=== PATIENT | female | born 1935 | race Caucasian/White ===

== ENCOUNTER 2018-01-30 10:22 | Observation (INO) | payer OTHER ==
[2018-01-30] MEDS ORDERED: IBUPROFEN 400 MG TAB ONE (11:08)
--- NOTE | 2018-01-30 11:49 | RAD REPORT ---
EXAM DESCRIPTION: RAD - Chest Single View - 01/30/2018 11:41 am CLINICAL HISTORY: Chest pain. COMPARISON: 07/24/2017 FINDINGS: Portable technique limits examination quality. The lungs are emphysematous but grossly clear. The heart is normal in size. No displaced fractures.Mo derate thoracic spine levoscoliosis. IMPRESSION: Diffuse COPD.
--- NOTE | 2018-01-30 11:50 | RAD REPORT ---
EXAM DESCRIPTION: RAD - Femur Left - 01/30/2018 11:41 am CLINICAL HISTORY: Left thigh pain COMPARISON: None. FINDINGS: Prominent osteopenia is seen. Vascular calcification is noted. No acute fracture or disloc ation seen.
[2018-01-30] MEDS ORDERED: METOPROLOL TARTRATE 5 MG/5 ML INJ IV ONE (12:10)
[2018-01-30] MEDS ORDERED: METOPROLOL TAR 25 MG TAB ONE (12:10)
[2018-01-30 12:19] LABS: Absolute Lymphocytes (CBC) 0.4 K/uL (0.7-4.9); Absolute Monocytes 0.3 K/uL (0.1-1.3); Absolute Neutrophil 6.5 K/uL (1.8-8.0); Basophils % 2.6 % (0-1.3); Hematocrit 40.1 % (36.0-45.0); Lymphocytes % 5.1 % (15.3-44.8); MCH 28.2 pg (27.0-35.0); MCV 89.4 fL (80-100); MPV 8.4 fL (7.6-11.3); Monocytes % 3.8 % (3.3-12.3); RBC Red Blood Cell Count 4.48 M/uL (3.86-4.86)
--- NOTE | 2018-01-30 12:26 | RAD REPORT ---
EXAM DESCRIPTION: VAS - Extremity Venous Uni Ltd - 01/30/2018 12:11 pm CLINICAL HISTORY: Leg swelling and edema. COMPARISON: None. FINDINGS: Left lower extremity venous system was interrogated with Doppler technique. Normal flow, c ompressibility and augmentation was noted. There is no DVT present. IMPRESSION: No evidence of left lower extremity deep venous thrombosis.
[2018-01-30 12:30] LABS: Protime INR 2.68
[2018-01-30 12:45] LABS: CKMB Creatine Kinase MB 3.4 ng/ml (0.3-4.0)
[2018-01-30 12:51] LABS: Bilirubin Direct 0.3 mg/dL (0-0.2); Bilirubin Total 1.5 mg/dL (0.3-1.2); Magnesium 1.9 mg/dL (1.8-2.5); Protein, Total 6.8 g/dL (6.0-8.3)
[2018-01-30 12:52] LABS: T3 Free 2.58 pg/ml (2.84-4.24)
[2018-01-30] MEDS ORDERED: NA CHLORIDE 0.9% 1,000 ML ONE (12:59)
[2018-01-30] MEDS ORDERED: NA CHLORIDE 0.9% 250 ML ONE (12:59)
[2018-01-30 13:01] LABS: Blood Morphology Comment NOT SEEN (NOT SEEN); Platelet Estimate ADEQ
--- NOTE | 2018-01-30 13:06 | EDPHYS ---
Physician Documentation [facility] Name: Syeda Light Age: 82 yrs Sex: Female : 1935 Arrival Date: 01/30/2018 Time: 10:25 Bed 19 Private MD: Out, [facility] ED Physician Shukri Nielsen HPI: 01/30 10:49 This 82 yrs old Female presents to ER via Ambulatory with complaints of Leg cp Pain. 10:49 The patient presents with pain, that is acute, tenderness. The complaints affect the cp medial aspect of left thigh and left quadriceps. Context: the patient can fully bear weight, the patient is able to ambulate, without difficulty. Onset: The symptoms/episode began/occurred today, intermittent. 10:49 Associated signs and symptoms: Pertinent negatives calf tenderness, fever, numbness, cp weakness. Treatment prior to arrival includes: no previous treatment. Historical: - Allergies: 11:26 No Known Allergies; em - Home Meds: 10:32 ferrous sulfate 325 mg (65 mg iron) Oral tab daily [Active]; Klor-Con M20 20 mEq Oral hb TbTQ 1 tab once daily [Active]; Lasix 40 mg Oral tab 1 tab once daily [Active]; Xarelto 15 mg Oral tab daily [Active]; 11:23 levothyroxine 75 mcg oral tab [Active]; isosorbide mononitrate 30 mg Oral Tb24 1 tab em once daily [Active]; - PMHx: 10:32 BREAST CA; CHF; Hypertension; Hypothyroidism; Atrial Fib; hb - PSHx: 10:32 left mastectomy; hb - Immunization history:: Adult Immunizations up to date. - Social history:: Smoking status: Patient/guardian denies using tobacco. - Ebola Screening: : No symptoms or risks identified at this time. ROS: 10:55 Constitutional: Negative for body aches, chills, fever, poor PO intake. cp 10:55 Eyes: Negative for injury, pain, redness, and discharge. cp 10:55 ENT: Negative for drainage from ear(s), ear pain, sore throat, difficulty swallowing, difficulty handling secretions. 10:55 Cardiovascular: Negative for chest pain, edema, palpitations. 10:55 Respiratory: Negative for cough, shortness of breath, wheezing. 10:55 Abdomen/GI: Negative for abdominal pain, nausea, vomiting, and diarrhea, black/tarry stool, rectal bleeding. 10:55 Back: Negative for decreased range of motion, pain at rest, pain with movement, radiated pain. 10:55 MS/extremity: Positive for pain, tenderness, of the medial aspect of left thigh, Negative for injury or acute deformity, paresthesias. 10:55 Skin: Negative for cellulitis, rash. 10:55 All other systems are negative. Exam: 11:00 Constitutional: The patient appears in no acute distress, alert, awake, cp non-diaphoretic, non-toxic, well developed, well nourished. 11:00 Head/Face: Normocephalic, atraumatic. cp 11:00 Eyes: Periorbital structures: appear normal, Pupils: equal, round, and reactive to light and accomodation, Extraocular movements: intact throughout, Conjunctiva: normal, no exudate, no injection, Sclera: no appreciated abnormality, Lids and lashes: appear normal, bilaterally. 11:00 ENT: External ear(s): are unremarkable, Nose: is normal, Mouth: is normal, Posterior pharynx: is normal, airway is patent, no erythema, no exudate. 11:00 Neck: External neck: is normal, ROM/movement: is normal, is supple, without pain, no range of motions limitations, no nuchal rigidity. 11:00 Chest/axilla: Inspection: normal, Palpation: is normal, no crepitus, no tenderness. 11:00 Cardiovascular: Rate: tachycardic, Rhythm: irregularly irregular, Pulses: Pulses are 2+ in right radial artery and left radial artery. Edema: is not appreciated, JVD: is not appreciated. 11:00 Respiratory: the patient does not display signs of respiratory distress, Respirations: normal, no use of accessory muscles, no retractions, no splinting, no tachypnea, labored breathing, is not present, Breath sounds: decreased breath sounds, that are mild, throughout. 11:00 Abdomen/GI: Inspection: abdomen appears normal, Bowel sounds: active, all quadrants, Palpation: abdomen is soft and non-tender, in all quadrants, rebound tenderness, is not appreciated, voluntary guarding, is not appreciated, involuntary guarding, is not appreciated. 11:00 Back: pain, is absent, ROM is normal. 11:00 Musculoskeletal/extremity: Extremities: grossly normal except: noted in the medial aspect of left thigh: pain, tenderness, There is no evidence of deformity, erythema, swelling, injury or cellulitis. 11:00 Skin: cellulitis, is not appreciated, no rash present. 11:00 Neuro: Orientation: to person, place \T\ time. Mentation: lucid, able to follow commands, Cerebellar function: is grossly normal, Motor: moves all fours, strength is normal, Sensation: is normal. 11:30 ECG was reviewed by the Attending Physician. cp Vital Signs: 10:31 BP 130 / 69; Pulse 116; Resp 16; Temp 98.2; Pulse Ox 100% on R/A; Weight 53.98 kg; hb Height 5 ft. 6 in. (167.64 cm); Pain 2/10; 11:15 BP 115 / 111; Pulse 116; Resp 18; Pulse Ox 98% on R/A; em 12:23 BP 127 / 85; Pulse 108; Resp 18 S; Pulse Ox 98% on R/A; iw 13:00 BP 118 / 79; Pulse 66; Resp 18; Pulse Ox 96% on R/A; em 13:53 BP 105 / 79; Pulse 81; Resp 15; Pulse Ox 98% on R/A; ag 15:12 BP 108 / 65; Pulse 76; Resp 18; Pulse Ox 95% on R/A; Pain 0/10; em 10:31 Body Mass Index 19.21 (53.98 kg, 167.64 cm) hb MDM: 10:35 Patient medically screened. [facility] 11:00 Differential diagnosis: contusion, DVT, cellulitis, electrolyte abnormality, cardiac cp arrythmia. 12:55 Data reviewed: vital signs, nurses notes, lab test result(s), EKG, radiologic studies, cp plain films, ultrasound. 12:55 Test interpretation: by ED physician or midlevel provider: ECG. Response to treatment: cp the patient's symptoms have markedly improved after treatment. 13:01 Physician consultation: Devin Goldstein DO was contacted at 13:01, regarding admission, cp to the telemetry unit. patient's condition, and will see patient in ED, shortly. 01/30 11:25 Order name: Basic Metabolic Panel cp 01/30 11:25 Order name: BNP 01/30 11:25 Order name: CBC with Diff 01/30 12:40 Interpretation: Normal except: MCV 89.4; MCHC 31.5; SANDY% 87.5; LYM% 5.1; BASO% 2.6; cp LYMA 0.4. 01/30 11:25 Order name: Ckmb 01/30 11:25 Order name: CPK 01/30 11:25 Order name: LFT's 01/30 11:25 Order name: Magnesium cp 01/30 11:25 Order name: PT-INR; Complete Time: 12:39 cp 01/30 11:25 Order name: Ptt, Activated; Complete Time: 12:39 cp 01/30 11:25 Order name: Troponin (emerg Dept Use Only); Complete Time: 12:39 cp 01/30 11:25 Order name: TSH 01/30 11:25 Order name: T3 Free 01/30 13:01 Order name: Manual Differential [facility] 01/30 13:36 Order name: CKMB Creatine Kinase MB [facility] 01/30 10:51 Order name: US Extremity Venous Unilateral Ltd; Complete Time: 12:39 cp 01/30 10:51 Order name: XRAY Femur LEFT; Complete Time: 12:15 cp 01/30 13:36 Order name: CKMB Creatine Kinase MB [facility] 01/30 13:36 Order name: CKMB Creatine Kinase MB [facility]AL 01/30 13:36 Order name: Comprehensive Metabolic Panel [facility] 01/30 13:36 Order name: Comprehensive Metabolic Panel [facility] 01/30 13:36 Order name: Comprehensive Metabolic Panel [facility] 01/30 13:36 Order name: Comprehensive Metabolic Panel [facility] 01/30 13:36 Order name: Creatine Phosphokinase [facility]AL 01/30 13:36 Order name: Creatine Phosphokinase EDAL 01/30 13:36 Order name: Creatine Phosphokinase EDAL 01/30 13:36 Order name: Lipid Profile [facility] 01/30 13:36 Order name: Lipid Profile [facility] 01/30 13:36 Order name: Hemoglobin A1C EDAL 01/30 13:36 Order name: Hepatitis Panel,Acute EDAL 01/30 13:36 Order name: Troponin I EDAL 01/30 11:17 Order name: EKG; Complete Time: 11:17 cp 01/30 11:17 Order name: EKG - Nurse/Tech; Complete Time: 11:46 cp 01/30 11:25 Order name: XRAY Chest (1 view); Complete Time: 12:15 01/30 12:15 Interpretation: Report review. 01/30 11:25 Order name: Cardiac monitoring; Complete Time: 11:45 01/30 11:25 Order name: IV Saline Lock; Complete Time: 12:12 01/30 11:25 Order name: Labs collected and sent; Complete Time: 12:11 01/30 11:25 Order name: O2 Per Protocol; Complete Time: 11:45 01/30 11:25 Order name: O2 Sat Monitoring; Complete Time: 11:45 01/30 13:36 Order name: CONS Physician Consult [facility] 01/30 13:36 Order name: Respiratory Therapy Consult [facility] 01/30 13:36 Order name: Heart Healthy EDAL EC:30 Rate is 97 beats/min. Rhythm is irregularly irregular. QRS interval is normal. QT cp interval is normal. No ST changes noted. Interpreted by me. Reviewed by me. Administered Medications: 11:10 Drug: Ibuprofen 800 mg Route: PO; em 12:00 Follow up: Response: No adverse reaction em 12:11 Drug: Metoprolol 25 mg Route: PO; em 14:13 Follow up: Response: Cardiac rhythm changed em 12:22 Drug: Lopressor 5 mg Route: IVP; Site: right wrist; iw 14:13 Follow up: Response: No adverse reaction; Cardiac rhythm changed em 13:01 Drug: NS 0.9% 250 ml Route: IV; Rate: bolus; Site: right forearm; em 14:13 Follow up: IV Status: Completed infusion; IV Intake: 250ml em 13:50 Drug: NS 0.9% 1000 ml Route: IV; Rate: 75 ml/hr; Site: right forearm; em 15:27 Follow up: IV Status: Infusion continued upon admission; IV Intake: 150ml em Disposition: 01/30/18 13:05 Hospitalization ordered by Devin Goldstein for Observation. Preliminary diagnosis is Chronic atrial fibrillation. - Bed requested for Telemetry/MedSurg (observation). - Status is Observation. em - Condition is Stable. - Problem is new. - Symptoms have improved. UTI on Admission? No Addendum: 02/01/2018 09:00 Co-signature as Attending Physician, Shukri Nielsen MD I agree with the assessment and c justin plan of care. Signatures: Dispatcher [employer] EDMS Micaela Leonard Shukri Linton MD MD cha Munoz, Edgar, HEALTH AND SAFETY INSTRUCTOR HEALTH AND SAFETY INSTRUCTOR em Princess Potter, RN RN Shukri Avery PA PA cp Baxter, Heather, RN RN Corrections: (The following items were deleted from the chart) 01/30 11:23 10:32 Allergies: No Known Allergies; hb em 11:23 10:32 Home Meds: amiodarone 200 mg Oral tab 1 tab once daily; hb em 11:23 10:32 Home Meds: levothyroxine 50 mcg tab 1 tab once daily; hb em 12:40 12:39 Normal except: MCV 89.4; MCHC 31.5; SANDY% 87.5; LYM% 5.1; BASO% 2.6. cp 14:37 13:05 Hospitalization Ordered by Devin Goldstein DO for Observation. Preliminary bd diagnosis is Chronic atrial fibrillation. Bed requested for Telemetry/MedSurg (observation). Status is Observation. Condition is Stable. Problem is new. Symptoms have improved. UTI on Admission? No. cp 15:28 11:25 Urine Dipstick-Ancillary ordered. em 15:28 14:37 01/30/2018 13:05 Hospitalization Ordered by Devin Goldstein DO for Observation. em Preliminary diagnosis is Chronic atrial fibrillation. Bed requested for Telemetry/MedSurg (observation). Status is Observation. Condition is Stable. Problem is new. Symptoms have improved. UTI on Admission? No. bd
--- NOTE | 2018-01-30 13:06 | ER ---
Nurse's Notes [facility] Name: Syeda Light Age: 82 yrs Sex: Female : 1935 Arrival Date: 01/30/2018 Time: 10:25 Bed 19 Private MD: Out, [facility] Diagnosis: Chronic atrial fibrillation Presentation: 01/30 10:28 Presenting complaint: Patient states: Sharp left thigh pain since this morning. Denies hb injury. Transition of care: patient was not received from another setting of care. Onset of symptoms was January 30, 2018. Risk Assessment: Do you want to hurt yourself or someone else? Patient reports no desire to harm self or others. Care prior to arrival: None. 10:28 Method Of Arrival: Ambulatory hb 10:28 Acuity: MARY 3 hb 15:11 Initial Sepsis Screen: Does the patient meet any 2 criteria? No. Patient's initial em sepsis screen is negative. Does the patient have a suspected source of infection? No. Patient's initial sepsis screen is negative. Historical: - Allergies: 11:26 No Known Allergies; em - Home Meds: 10:32 ferrous sulfate 325 mg (65 mg iron) Oral tab daily [Active]; Klor-Con M20 20 mEq Oral hb TbTQ 1 tab once daily [Active]; Lasix 40 mg Oral tab 1 tab once daily [Active]; Xarelto 15 mg Oral tab daily [Active]; 11:23 levothyroxine 75 mcg oral tab [Active]; isosorbide mononitrate 30 mg Oral Tb24 1 tab em once daily [Active]; - PMHx: 10:32 BREAST CA; CHF; Hypertension; Hypothyroidism; Atrial Fib; hb - PSHx: 10:32 left mastectomy; hb - Immunization history:: Adult Immunizations up to date. - Social history:: Smoking status: Patient/guardian denies using tobacco. - Ebola Screening: : No symptoms or risks identified at this time. Screenin:00 Abuse screen: Denies threats or abuse. Nutritional screening: No deficits noted. em Tuberculosis screening: No symptoms or risk factors identified. Fall Risk None identified. Assessment: 11:08 General: Appears in no apparent distress. comfortable, Behavior is calm, cooperative. em General: Reports left femur pain that started this morning, feels "sharp", denies trauma. Pain: Denies pain. Pain: Pain at worst was 10 out of 10 on a pain scale. Quality of pain is described as sharp. Neuro: Level of Consciousness is awake, alert, obeys commands, Oriented to person, place, time, situation. Cardiovascular: Denies chest pain, palpitations, shortness of breath, Capillary refill < 3 seconds Patient's skin is warm and dry. Rhythm is atrial fibrillation Chest pain is denied. Respiratory: Airway is patent Respiratory effort is even, unlabored, Respiratory pattern is regular, symmetrical. GI: Abdomen is flat. : No signs and/or symptoms were reported regarding the genitourinary system. EENT: No signs and/or symptoms were reported regarding the EENT system. Derm: Skin is intact, is healthy with good turgor, Skin is pink, warm \\T\\ dry. Musculoskeletal: Range of motion: intact in all extremities, Swelling absent. 12:00 Reassessment: Patient appears in no apparent distress at this time. I agree with above iw assessment by Nguyễn Christine LVN. 12:00 Reassessment: Patient appears in no apparent distress at this time. Patient and/or em family updated on plan of care and expected duration. Pain level reassessed. Patient is alert, oriented x 3, equal unlabored respirations, skin warm/dry/pink. Patient states feeling better. 13:07 Reassessment: Patient appears in no apparent distress at this time. Patient and/or em family updated on plan of care and expected duration. Pain level reassessed. Patient is alert, oriented x 3, equal unlabored respirations, skin warm/dry/pink. Patient denies pain at this time. 14:05 Reassessment: Patient appears in no apparent distress at this time. Patient and/or em family updated on plan of care and expected duration. Pain level reassessed. awaiting room assignment, family at bedside. 14:50 Reassessment: Patient appears in no apparent distress at this time. Patient and/or em family updated on plan of care and expected duration. Pain level reassessed. pt eating lunch, tolerated well. Vital Signs: 10:31 BP 130 / 69; Pulse 116; Resp 16; Temp 98.2; Pulse Ox 100% on R/A; Weight 53.98 kg; hb Height 5 ft. 6 in. (167.64 cm); Pain 2/10; 11:15 BP 115 / 111; Pulse 116; Resp 18; Pulse Ox 98% on R/A; em 12:23 BP 127 / 85; Pulse 108; Resp 18 S; Pulse Ox 98% on R/A; iw 13:00 BP 118 / 79; Pulse 66; Resp 18; Pulse Ox 96% on R/A; em 13:53 BP 105 / 79; Pulse 81; Resp 15; Pulse Ox 98% on R/A; ag 15:12 BP 108 / 65; Pulse 76; Resp 18; Pulse Ox 95% on R/A; Pain 0/10; em 10:31 Body Mass Index 19.21 (53.98 kg, 167.64 cm) hb Vitals: 12:22 Cardiac Rhythm Assessment Atrial fibrillation W/rapid ventricular response. iw 15:12 Cardiac Rhythm Assessment Atrial fibrillation. em ED Course: 10:25 Patient arrived in ED. mr 10:26 Out, [facility] is Private Physician. mr 10:31 Triage completed. hb 10:31 Arm band placed on left wrist. hb 10:34 Shukri Crum PA is PHCP. cp 10:34 Shukri Nielsen MD is Attending Physician. cp 10:49 Nguyễn Christine LVN is Primary Nurse. em 11:41 XRAY Femur LEFT In Process Unspecified. EDMS 11:41 XRAY Chest (1 view) In Process Unspecified. EDMS 11:41 Ultrasound completed. Patient tolerated well. sg3 12:00 Patient has correct armband on for positive identification. Placed in gown. Bed in low em position. Call light in reach. Adult w/ patient. 12:10 Initial lab(s) drawn, by me, sent to lab. Inserted saline lock: 20 gauge in right em forearm, using aseptic technique. Blood collected. 12:11 US Extremity Venous Unilateral Ltd In Process Unspecified. EDMS 13:04 Devin Goldstein DO is Hospitalizing Provider. cp 15:10 No provider procedures requiring assistance completed. Patient admitted, IV remains in em place. Administered Medications: 11:10 Drug: Ibuprofen 800 mg Route: PO; em 12:00 Follow up: Response: No adverse reaction em 12:11 Drug: Metoprolol 25 mg Route: PO; em 14:13 Follow up: Response: Cardiac rhythm changed em 12:22 Drug: Lopressor 5 mg Route: IVP; Site: right wrist; iw 14:13 Follow up: Response: No adverse reaction; Cardiac rhythm changed em 13:01 Drug: NS 0.9% 250 ml Route: IV; Rate: bolus; Site: right forearm; em 14:13 Follow up: IV Status: Completed infusion; IV Intake: 250ml em 13:50 Drug: NS 0.9% 1000 ml Route: IV; Rate: 75 ml/hr; Site: right forearm; em 15:27 Follow up: IV Status: Infusion continued upon admission; IV Intake: 150ml em Intake: 14:13 IV: 250ml; Total: 250ml. em 15:27 IV: 150ml; Total: 400ml. em Outcome: 13:05 Decision to Hospitalize by Provider. cp 15:11 Admitted to Tele accompanied by tech, via wheelchair, room 218, with chart, Report em called to GUILLERMO Segura 15:11 Condition: good 15:11 Instructed on the need for admit, Demonstrated understanding of instructions. 15:28 Patient left the ED. em Signatures: Dispatcher [employer] Wendy Norwood mr Emmett, Nguyễn, PYROTECHNIC ASSEMBLER PYROTECHNIC ASSEMBLER em Princess Potter, GUILLERMO LI iw King, Shukri Wheatley PA PA cp Baxter, Heather, RN RN Ese Stern sg3 Corrections: (The following items were deleted from the chart) 10:33 10:31 BP 130 / 69; Pulse 105bpm; Resp 16bpm; Pulse Ox 100% RA; Temp 98.2F; 53.98 kg; hb Height 5 ft. 6 in.; BMI: 19.2; Pain 2/10; hb 11:23 10:32 Allergies: No Known Allergies; hb em 11:23 10:32 Home Meds: amiodarone 200 mg Oral tab 1 tab once daily; hb em 11:23 10:32 Home Meds: levothyroxine 50 mcg tab 1 tab once daily; hb em
[2018-01-30 13:10] LABS: Thyroid Stimulating Hormone 1.31 uIU/mL (0.34-5.60)
[2018-01-30] MEDS ORDERED: IPRATROPIUM BROM 0.5MG/2.5ML NEB PRN (13:29)
[2018-01-30] MEDS ORDERED: ALBUTEROL 2.5 MG/3 ML NEB SOL NEB PRN (13:29)
[2018-01-30] MEDS ORDERED: ONDANSETRON 4 MG/2 ML VIAL IV PRN (13:29)
[2018-01-30] MEDS ORDERED: ACETAMINOPHEN 500 MG TAB PO PRN (13:29)
[2018-01-30] MEDS ORDERED: TRAMADOL HCL 50 MG TAB PO PRN (13:29)
--- NOTE | 2018-01-30 13:29 | P.HP ---
Certification for Inpatient Patient admitted to: Observation With expected LOS: <2 Midnights Patient will require the following post-hospital care: None Practitioner: I am a practitioner with admitting privileges, knowledge of patient current condition, hospital course, and medical plan of care. Services: Services provided to patient in accordance with Admission requirements found in Title 42 Section 412.3 of the Code of Federal Regulations Patient History Date of Service: 01/30/18 Primary Care Provider: Dr. Gallardo; Cardiology-Dr. Sheriff ([place], [place]) Reason for admission: Left leg pain History of Present Illness: 82 yo CF presented to the ER with left leg pain. It started this am. It was sharp and mainly to the left side. She denied chest pain or shortness of breath. She has a history of Atrial fibrillation on chronic anticoagulation, CHF , Hypothyroidism. She came to the ER for evaluation. She denied any nausea or vomiting. In the ER she was evaluated. She was in atrial fibrillation with RVR. Her rate was about 140. She denied any palpations. She was given Metoprolol in the ER. She is not taking rate controll medication but is on anticoagulation. CBC was normal. Her Na was 136, K 4.6, Creatinine 1.0, GFR of 53 and BS-201. Total bili and direct bili was slightly elevated. Doppler of the lower ext was negative for DVT. No fracture was noted on the left side. Vascular calcification was noted on xray to the left femur area. CXR showed COPD changes. She was admitted for observation. In the ER she was without pain when I saw her. Patient denied SOB, Chest pain. Her rate was controlled when I saw her. Allergies No Known Allergies Allergy (Verified 07/17/17 02:40) Home medications list reviewed: Yes Home Medications: Levothyroxine [Synthroid*] 0.05 mg PO DAILY 07/15/16 Potassium Chloride [K-Dur] 20 meq PO DAILY #30 tab.er.prt 07/15/16 Rivaroxaban [Xarelto*] 15 mg PO DAILY AT SUPPER #30 02/06/17 Albuterol Neb [Proventil 0.083% Neb Soln] 2.5 mg NEB Q6HP PRN amp 07/28/17 Arformoterol Tartrate [Brovana] 15 mcg NEB BIDRESP vial.neb 07/28/17 Docusate [Colace Cap*] 100 mg PO DAILY cap 07/28/17 Ensure Clear 237 ml PO BID can 07/28/17 Furosemide [Lasix 20 MG inj*] 20 mg IV BIDL vial 07/28/17 Hydrocodone 5/APAP 325 [[place] 5/325*] 1 tab PO Q6H PRN tab 07/28/17 Hydrocodone 5/APAP 325 [[place] 5/325] 1 tab PO Q6H PRN #30 tab 07/28/17 Ipratropium Neb [Atrovent*] 0.5 mg NEB Q6HP PRN amp 07/28/17 Ondansetron [Zofran*] 4 mg IV Q6HP PRN vial 07/28/17 Pantoprazole [Protonix Tab*] 40 mg PO DAILYAC tab 07/28/17 traMADol HCL [Ultram*] 50 mg PO TID PRN tab 07/28/17 - Past Medical/Surgical History Diabetic: No -: HTN -: CHF -: Hypothyroidism -: Atrial fibrillation on chronic anticoagulation -: History of Breast cancer -: COPD -: Former tobacco abuse -: Lumpectomy left breast -: Status post chemotherapy for breast cancer treated 2 years ago Psychosocial/ Personal History: She is a . She has 3 children - Family History Sister -: Diabetes Brother -: Heart disease, Cancer - Social History Smoking Status: Former smoker Alcohol use: No CD- Drugs: No Caffeine use: Yes Place of Residence: Home Review of Systems General: As per HPI Eyes: Unremarkable ENT: Unremarkable Respiratory: Unremarkable Cardiovascular: Unremarkable Gastrointestinal: Unremarkable Genitourinary: Unremarkable Musculoskeletal: Leg Pain, As per HPI Integumentary: Unremarkable Neurological: Unremarkable Lymphatics: Unremarkable Physical Examination - Physical Exam General: Alert, In no apparent distress, Oriented x3, Cooperative HEENT: Atraumatic, Normocephalic, PERRLA, Mucous membr. moist/pink Neck: Supple, No Thyromegaly Respiratory: Clear to auscultation bilaterally, Normal air movement Cardiovascular: Irregular heart rate/rhythm (atrial fibrillation rate controlled. ) Gastrointestinal: Normal bowel sounds, Soft and benign, Non-distended, No tenderness, No masses, No rebound, No guarding Musculoskeletal: No contractures, No erythema, No tenderness, No warmth Integumentary: No tenderness/swelling, No erythema, No warmth, No cyanosis Neurological: Normal speech, Normal strength at 5/5 x4 extr, Normal tone, Normal affect Lymphatics: No axilla or inguinal lymphadenopathy - Studies Laboratory Data (last 24 hrs) 01/30/18 12:00: PT 31.9 H, INR 2.68, APTT 34.5 01/30/18 12:00: WBC 7.4, Hgb 12.6, Hct 40.1, Plt Count 283 01/30/18 12:00: B-Natriuretic Peptide 321 H 01/30/18 12:00: Sodium 136, Potassium 4.0, BUN 25 H, Creatinine 1.00, Glucose 201 H, Magnesium 1.9, Total Bilirubin 1.5 H, AST 24, ALT 10, Alkaline Phosphatase 138 H Assessment and Plan - Problems (Diagnosis) (1) COPD (chronic obstructive pulmonary disease) Current Visit: Yes Status: Chronic Plan: Stable. Will continue with COPD medication. Qualifiers: COPD type: chronic bronchitis Chronic bronchitis type: unspecified Qualified Code(s): J42 - Unspecified chronic bronchitis (2) GERD (gastroesophageal reflux disease) Current Visit: Yes Status: Suspected Plan: Will start PPI. Qualifiers: Esophagitis presence: esophagitis presence not specified Qualified Code(s) : K21.9 - Gastro-esophageal reflux disease without esophagitis (3) Leg pain Current Visit: Yes Status: Acute Plan: This has resolved. Xray showed some vascular calcification near femur on the left. She may have PVD. Will discuss with Cardiology. Qualifiers: Laterality: left Qualified Code(s): M79.605 - Pain in left leg (4) PVD (peripheral vascular disease) Current Visit: Yes Status: Suspected Plan: As above. This can be worked up as outpatient. (5) CHF (congestive heart failure) Current Visit: Yes Status: Chronic Plan: Stable. Will continue with Lasix. Qualifiers: Heart failure type: diastolic Heart failure chronicity: chronic Qualified Code(s): I50.32 - Chronic diastolic (congestive) heart failure (6) Hyperglycemia Current Visit: Yes Status: Acute (7) Atrial fibrillation Onset Date: 07/15/16 Current Visit: No Status: Acute Plan: Treated with metoprolol in the ER. Stable with rate controlled. Will start low dose Metoprolol. She is not taking rate controlled medication at home. Will continue with chronic anticoagulation. Will consult Cardiology for recommendations. Qualifiers: (8) Chronic anticoagulation Current Visit: No Status: Chronic Plan: Continue with medication. (9) Hypothyroidism Current Visit: No Status: Chronic Plan: Continue with medication. Qualifiers: (10) Hyperglycemia Current Visit: Yes Status: Acute Plan: BS was elevated. Will check A1c. Will place on sliding scale. Discharge Plan: Home Plan to discharge in: 24 Hours - Advance Directives Does patient have a Living Will: No Does patient have a Durable POA for Healthcare: No - Code Status/Comfort Care Code Status Assessed: Yes Time Spent Managing Pts Care (In Minutes): 55
[2018-01-30] MEDS ORDERED: D50W 25 GM/50 ML SYRINGE IV PRN (14:08)
[2018-01-30] MEDS ORDERED: GLUCAGON 1 MG/VIAL IM PRN (14:08)
[2018-01-30 15:36] VITALS: BMI 19.5
[2018-01-30] MEDS: INSULIN -REGULAR HUMAN 50 UNIT/0.5 ML ML SQ SCH ×2 (16:25→21:00)
[2018-01-30 16:30] LABS: Urine Appearance CLEAR; Urine Bilirubin NEGATIVE (NEG); Urine Blood TRACE (NEG); Urine Color YELLOW; Urine Glucose NEGATIVE (NEG); Urine Protein NEGATIVE (NEG); Urine Urobilinogen 0.2 mg/dL (0.2-1.0); Urine pH 5.5 (5.0-7.0)
[2018-01-30 16:40] LABS: Urine Microscopic Reflex ORDER UMIC
[2018-01-30 16:43] LABS: Urine Bacteria <20 /HPF (<20); Urine RBC <5 /HPF (NONE SEEN)
[2018-01-30 16:44] LABS: Urine Culture Reflex Order REFLEXED
[2018-01-30] MEDS ORDERED: RIVAROXABAN 15 MG TABLET PO SCH (17:00)
[2018-01-30] MEDS: METOPROLOL TAR 25 MG TAB PO SCH (17:07)
[2018-01-30] MEDS: ARFORMOTEROL TARTRATE 15 MCG/2 ML VIAL.NEB NEB SCH (20:41)
[2018-01-31 00:09] LABS: CKMB Creatine Kinase MB 2.5 ng/ml (0.3-4.0)
[2018-01-31 05:51] LABS: Absolute Lymphocytes (CBC) 0.7 K/uL (0.7-4.9); Absolute Monocytes 0.7 K/uL (0.1-1.3); Basophils % 0.8 % (0-1.3); Eosinophils % 3.1 % (0-4.4); Hematocrit 36.1 % (36.0-45.0); Lymphocytes % 15.6 % (15.3-44.8); MCV 87.5 fL (80-100); MPV 8.8 fL (7.6-11.3); RBC Red Blood Cell Count 4.13 M/uL (3.86-4.86)
[2018-01-31 06:00] LABS: Monocytes % 15.9 % (3.3-12.3)
[2018-01-31] MEDS: METOPROLOL TAR 25 MG TAB PO SCH (06:03)
[2018-01-31 06:16] LABS: Albumin 3.4 g/dL (3.2-5.5); Bilirubin Total 1.7 mg/dL (0.3-1.2); CKMB Creatine Kinase MB 2.5 ng/ml (0.3-4.0); Potassium 4.2 mEq/L (3.6-5.0); Protein, Total 5.9 g/dL (6.0-8.3)
[2018-01-31] MEDS ORDERED: PANTOPRAZOLE 40MG TABLET PO SCH (06:30)
[2018-01-31] MEDS: INSULIN -REGULAR HUMAN 50 UNIT/0.5 ML ML SQ SCH ×2 (07:30→11:30)
[2018-01-31] MEDS: ARFORMOTEROL TARTRATE 15 MCG/2 ML VIAL.NEB NEB SCH (07:53)
[2018-01-31 08:28] LABS: A1c Component 0.47 mg/dL; Hemoglobin A1c 5.8 % (4-6.0)
--- NOTE | 2018-01-31 08:36 | P.DS ---
Admission Date: 01/30/18 Discharge Date: 01/31/18 Primary Care Provider: Dr. Gallardo; Cardiology-Dr. Sheriff ([place], [place]) Disposition: ROUTINE DISCHARGE Discharge Condition: GOOD Reason for Admission: Left leg pain Consultations: Cardiology-Dr. Osullivan Procedures: X-ray shows diffuse COPD. Venous Doppler left lower extremity shows no DVT. X-ray to left femur shows no fracture. Vascular calcification noted. - Problems (1) COPD (chronic obstructive pulmonary disease) Current Visit: Yes Status: Chronic Qualifiers: COPD type: chronic bronchitis Chronic bronchitis type: unspecified Qualified Code(s): J42 - Unspecified chronic bronchitis (2) GERD (gastroesophageal reflux disease) Current Visit: Yes Status: Suspected Qualifiers: Esophagitis presence: esophagitis presence not specified Qualified Code(s) : K21.9 - Gastro-esophageal reflux disease without esophagitis (3) Leg pain Current Visit: Yes Status: Acute Qualifiers: Laterality: left Qualified Code(s): M79.605 - Pain in left leg (4) PVD (peripheral vascular disease) Current Visit: Yes Status: Suspected (5) CHF (congestive heart failure) Current Visit: Yes Status: Chronic Qualifiers: Heart failure type: diastolic Heart failure chronicity: chronic Qualified Code(s): I50.32 - Chronic diastolic (congestive) heart failure (6) Atrial fibrillation Onset Date: 07/15/16 Current Visit: No Status: Acute Qualifiers: (7) Chronic anticoagulation Current Visit: No Status: Chronic (8) Hypothyroidism Current Visit: No Status: Chronic Qualifiers: (9) CAD (coronary artery disease) Current Visit: Yes Status: Chronic Qualifiers: Coronary Disease-Associated Artery/Lesion type: unspecified vessel or lesion type [place] vs. transplanted heart: unspecified whether [place] or transplanted heart Associated angina: angina presence unspecified Qualified Code(s): I25.10 - Atherosclerotic heart disease of [place] coronary artery without angina pectoris Brief History of Present Illness: 82 yo CF presented to the ER with left leg pain. It started this am. It was sharp and mainly to the left side. She denied chest pain or shortness of breath. She has a history of Atrial fibrillation on chronic anticoagulation, CHF , Hypothyroidism. She came to the ER for evaluation. She denied any nausea or vomiting. In the ER she was evaluated. She was in atrial fibrillation with RVR. Her rate was about 140. She denied any palpations. She was given Metoprolol in the ER. She is not taking rate controll medication but is on anticoagulation. CBC was normal. Her Na was 136, K 4.6, Creatinine 1.0, GFR of 53 and BS-201. Total bili and direct bili was slightly elevated. Doppler of the lower ext was negative for DVT. No fracture was noted on the left side. Vascular calcification was noted on xray to the left femur area. CXR showed COPD changes. She was admitted for observation. In the ER she was without pain when I saw her. Patient denied SOB, Chest pain. Her rate was controlled when I saw her. Hospital Course: Patient did well during the course of her stay. Her left lower leg pain resolved. Patient was found to have atrial fibrillation with RVR. Patient with chronic atrial fibrillation on chronic anti coagulation therapy. She had not been on any rate control medication in the past. Patient was started on low -dose metoprolol 12.5 mg 1 pill twice daily. Rate better controlled. Blood pressure stable. Cardiac enzymes unremarkable. No cardiac intervention needed at this time. At discharge the patient will continue with metoprolol 12.5 mg 1 pill twice daily. She will also continue with her chronic anti coagulation therapy-to Xarelto 15 mg at night. Recommendation is for the patient follow up with cardiology as an outpatient to further monitor. Patient has history of CAD and CHF. Patient will continue with Lasix 40 mg once daily and Imdur 30 mg daily. She will continue with a 1500 cc per day fluid restriction. Further adjustments can be done by her nut former. Patient has history of anemia. She is taking iron. Hemoglobin stable this time. Will recommend to discontinue iron. Recommendation to recheck CBC in 2- 4 weeks to monitor progress. Chest x-ray showed COPD. Patient with history of tobacco use in the past. At discharge patient will continue with Symbicort 160 mcg 2 puffs twice daily and Pro air 2 puffs 3 times a day as needed for shortness of breath. Recommendation is for the patient follow up with pulmonology as an outpatient to further evaluate and monitor. Patient may require pulmonary function test to further assess. Patient has GERD. Patient may continue with Protonix 40 mg 1 pill once daily. Patient may have underlying PVD. Patient can be further assessed as an outpatient by Cardiology. Venous Doppler of lower extremity showed no DVT. Patient has hypothyroidism. Patient continue with her medication-Levoxyl 75 mcg daily. Vital Signs/Physical Exam: Temp Pulse Resp BP Pulse Ox 97.6 F 79 16 112/75 97 01/31/18 04:00 01/31/18 06:03 01/31/18 04:00 01/31/18 06:03 01/31/18 04:00 General: Alert, In no apparent distress, Oriented x3, Cooperative HEENT: Atraumatic, Mucous membr. moist/pink Neck: Supple, No Thyromegaly Respiratory: Clear to auscultation bilaterally, Normal air movement Cardiovascular: Irregular heart rate/rhythm (Atrial fibrillation, rate controlled) Gastrointestinal: No ascites, No tenderness, No masses, No rebound, No guarding Musculoskeletal: No contractures, No erythema, No tenderness, No warmth Integumentary: No tenderness/swelling, No erythema, No warmth, No cyanosis Neurological: Normal speech, Normal strength at 5/5 x4 extr, Normal tone, Normal affect Laboratory Data at Discharge: WBC 4.7 K/uL (4.3-10.9) D 01/31/18 05:23 Hgb 12.0 g/dL (12.0-15.0) 01/31/18 05:23 Hct 36.1 % (36.0-45.0) 01/31/18 05:23 Plt Count 246 K/uL (152-406) 01/31/18 05:23 PT 31.9 SECONDS (9.5-12.5) H 01/30/18 12:00 INR 2.68 01/30/18 12:00 APTT 34.5 SECONDS (24.3-36.9) 01/30/18 12:00 Sodium 140 mEq/L (135-145) 01/31/18 05:23 Potassium 4.2 mEq/L (3.6-5.0) 01/31/18 05:23 BUN 23 mg/dL (6-20) H 01/31/18 05:23 Creatinine 0.97 mg/dL (0.44-1.00) 01/31/18 05:23 Glucose 96 mg/dL (65-120) 01/31/18 05:23 Magnesium 2.0 mg/dL (1.8-2.5) 01/31/18 05:23 Total Bilirubin 1.7 mg/dL (0.3-1.2) H 01/31/18 05:23 AST 22 IU/L (10-42) 01/31/18 05:23 ALT 13 IU/L (10-60) 01/31/18 05:23 Alkaline Phosphatase 130 IU/L (42-121) H 01/31/18 05:23 Troponin I < 0.03 ng/mL (<0.03) 01/31/18 05:23 B-Natriuretic Peptide 321 pg/ml (<=100) H 01/30/18 12:00 Triglycerides 95 mg/dL (35-160) 01/31/18 05:23 Cholesterol 159 mg/dL (<200) 01/31/18 05:23 HDL Cholesterol 46 mg/dL (29-89) 01/31/18 05:23 Cholesterol/HDL Ratio 3.46 01/31/18 05:23 Home Medications: Levothyroxine [Synthroid*] 0.075 mg PO DAILY 07/15/16 Potassium Chloride [K-Dur] 20 meq PO DAILY #30 tab.er.prt 07/15/16 Rivaroxaban [Xarelto*] 15 mg PO DAILY AT SUPPER #30 02/06/17 Furosemide [Lasix*] 40 mg PO DAILY 01/30/18 Isosorbide Mononitrate [Isosorbide Mononitrate ER] 30 mg PO DAILY 01/30/18 Metoprolol Tartrate [Lopressor*] 12.5 mg PO BID #60 tab 01/31/18 Pantoprazole [Protonix Tab*] 40 mg PO DAILYAC #30 tab 01/31/18 New Medications: Metoprolol Tartrate [Lopressor*] 12.5 mg PO BID #60 tab Pantoprazole [Protonix Tab*] 40 mg PO DAILYAC #30 tab Patient Discharge Instructions: 1. Patient will need to follow up her PCP in 1 week to follow up this hospitalization. 2. Patient presented with left lower leg pain. This resolved. X-ray shows no fracture. Patient also found to have atrial fibrillation with RVR. Rate now better controlled with medication. Patient with chronic atrial fibrillation on chronic anti coagulation therapy. She had not been on any rate control medication in the past. No cardiac intervention needed at this time. At discharge patient will continue with metoprolol 12.5 mg 1 pill twice daily. She will also continue with her chronic anti coagulation therapy-to Xarelto 15 mg at night. Recommendation is for the patient follow up with cardiology as an outpatient to further monitor. 3. Patient has history of CAD and CHF. Patient will continue with Lasix 40 mg once daily and Imdur 30 mg daily. She will continue with a 1500 cc per day fluid restriction. Recommendation is to monitor her weight daily. If her weight increases by more than 5 lb she is to contact her PCP for further instruction. Further adjustments can be done by her nut former. 4. Patient has history of anemia. She is taking iron at home. Hemoglobin stable this time. Will recommend to discontinue iron. Recommendation to recheck CBC in 2- 4 weeks to monitor progress. 5. Chest x-ray showed diffuse COPD changes. Patient with history of tobacco use in the past. At discharge patient will continue with Symbicort 160 mcg 2 puffs twice daily and Pro air 2 puffs 3 times a day as needed for shortness of breath. Recommendation is for the patient follow up with pulmonology as an outpatient to further evaluate and monitor. Patient may require pulmonary function test to further assess. 6. Patient likely has GERD. Patient may continue with Protonix 40 mg 1 pill once daily. 7. Patient may have underlying peripheral vascular disease. Patient can be further assessed as an outpatient by Cardiology. Venous Doppler of lower extremity showed no DVT. 8. Patient has hypothyroidism. Patient continue with her medication-Levoxyl 75 mcg daily. Diet: AHA Activity: Fall precautions Time spent managing pt's care (in minutes): 55
[2018-01-31] MEDS ORDERED: LEVOTHYROXINE SOD 0.05 MG TABLET PO SCH (09:00)
[2018-01-31] MEDS ORDERED: ISOSORBIDE MONO SR 30 MG TAB PO SCH (09:00)
[2018-01-31] MEDS ORDERED: FUROSEMIDE 40 MG TABLET PO SCH (09:00)
--- NOTE | 2018-01-31 09:12 | EKG ---
Test Date: 2018-01-30 Test Time: 11:23:54 Marketing Services Manager: BRADEN MEASUREMENT RESULTS: Intervals: Rate: 97 WI: QRSD: 78 QT: 348 QTc: 441 [place]: P: WI: QRS: 64 T: 96 INTERPRETIVE STATEMENTS: Atrial fibrillation Abnormal ECG Compared to ECG 07/25/2017 21:00:36 Sinus rhythm no longer present ST (T wave) deviation no longer present Possible ischemia no longer present Prolonged QT interval no longer present Electronically Signed On 01-31-18 09:08:42 CDT by Tarun Osullivan
[2018-01-31 11:02] VITALS: O2SAT 96
[2018-01-31 12:44] VITALS: BP 98/57; TEMP 98
[2018-02-01] MEDS ORDERED: LEVOTHYROXINE SOD 0.075 MG TAB PO SCH (06:30)
--- NOTE | 2018-02-02 06:45 | CON ---
Date of Consultation: 01/31/2018 The patient was admitted on 01/30/[address] Goldstein Service. I saw the patient on 01/31/2018. Reason For Consultation: Atrial fibrillation. History Of Present Illness: Ms. Light is an 82-year-old woman. She was admitted with atrial fibri llation and leg pain. She has a history of congestive heart failure, hypertension, history of breast cancer, as well as severe COPD. She does not have any cardiac symptoms. Denied PND, orthopnea, ped al edema, palpitation, or syncope. By the time I saw her, she really had a negative venous Doppler f or her leg pain. Her chest x-ray shows COPD. EKG showed atrial fibrillation with rapid ventricular response. Allergies: NONE. Review of Systems: Negative. Social History: Negative. Family History: Noncontributory. Medications: At home include Lasix, Imdur, potassium, iron, Synthroid, and Xarelto. Physical Examination: Vital Signs: Stable. She was in atrial fibrillation, rate of 100. HEENT: Negative. Neck: Supple. No bruit. Chest: Reveals some expiratory wheezing bilaterally. Cardiac: Revealed atrial fibrillation. No murmurs, gallops, or rubs. Abdomen: Benign. Extremities: Revealed no clubbing, cyanosis, or edema. Diagnostic Data: Fairly unremarkable. She had an echocardiogram in June 2017, which was normal. She had a chest x-ray now showing severe COPD. Impression And Plan: Chronic atrial fibrillation on Xarelto. The patient would be intolerant to bet a-sherri with her severe chronic obstructive pulmonary disease. I would more comfortable if we have her take a small dose of beta-sherri only as needed. If her heart rate continues to be rapid, we c an certainly consider low-dose verapamil or Cardizem. I think a calcium channel sherri would be bet ter for her. She is already on Xarelto. I think her congestive heart failure is chronic diastolic a nd may be secondary to her chronic obstructive pulmonary disease and hypertension rather than coronar y artery disease. I certainly would not embark on any invasive cardiac workup at this point. We carl l continue her Xarelto and Lasix and Imdur. Her blood pressure is fairly well controlled. Ms. Light can go home whenever it is okay with Dr. Goldstein. We will be happy to see her as an outpa tient. NB/NATALY Voice ID: [id number] Report ID: [id number]
[2018-02-02 20:21] LABS: HBsAG Nonreactive (Nonreactive); Hepatitis A IgM Antibody Nonreactive
== END 2018-01-31 13:13 | disposition home or self-care (01) ==
LOC: ER 10:22 → ERHOLD 13:51 → 2ND 15:09
PROVIDERS: ADMIT Family Medicine; ATTEND Family Medicine
DX: I48.91 Unspecified atrial fibrillation (principal); M79.605 Pain in left leg; Z79.01 Long term (current) use of anticoagulants; E03.9 Hypothyroidism, unspecified; I50.32 Chronic diastolic (congestive) heart failure; Z85.3 Personal history of malignant neoplasm of breast; I11.0 Hypertensive heart disease with heart failure; J44.9 Chronic obstructive pulmonary disease, unspecified; I25.10 Atherosclerotic heart disease of native coronary artery without angina pectoris
CPT/HCPCS: 36415; 71045; 80048; 80053; 80061; 80074; 80076; 81003; 81015; 82550; 82553; 82962; 83036; 83735; 83880; 84443; 84481; 84484; 85025; 85610; 85730; 87086; 87088; 93005; 93971; 94640; 96361; 96365; 96375; 99285; G0378; J7030; J7605

== ENCOUNTER 2018-08-25 18:43 | Emergency (ER) | payer OTHER ==
--- NOTE | 2018-08-25 19:47 | RAD REPORT ---
EXAM DESCRIPTION: RAD - Chest Single View - 08/25/2018 7:40 pm CLINICAL HISTORY: DYSPNEA Chest pain. COMPARISON: Chest Single View dated 01/30/2018; Chest Single View dated 07/24/2017; Chest Single View d ated 07/23/2017; Chest Pa And Lat (2 Views) dated 07/22/2017 FINDINGS: Portable technique limits examination quality. Emphysematous changes are present. No focal infiltrate detected. The heart is normal in size. No disp laced fractures. IMPRESSION: Mild COPD.
[2018-08-25 20:21] LABS: Albumin 3.7 g/dL (3.4-5.0); Bilirubin Direct 2.1 mg/dL (0-0.2); Bilirubin Total 4.7 mg/dL (0.2-1.0); CKMB Creatine Kinase MB 2.6 ng/mL (0.3-3.6); Magnesium 2.4 mg/dL (1.8-2.4); Potassium 3.7 mmol/L (3.5-5.1); Protein, Total 8.7 g/dL (6.4-8.2); Troponin (Emerg Dept Use Only) 0.02 ng/mL (0.0-0.045)
[2018-08-25 20:45] LABS: Absolute Lymphocytes (CBC) 0.8 K/uL (0.7-4.9); Absolute Monocytes 1.7 K/uL (0.1-1.3); Absolute Neutrophil 7.6 K/uL (1.8-8.0); Basophils % 0.5 % (0-1.3); Eosinophils % 0.7 % (0-4.4); Hematocrit 45.4 % (36.0-45.0); Lymphocytes % 7.7 % (15.3-44.8); MPV 9.4 fL (7.6-11.3); Monocytes % 16.5 % (3.3-12.3)
[2018-08-25 20:55] LABS: Protime INR 1.96
[2018-08-25 21:09] LABS: Blood Morphology Comment NOT SEEN (NOT SEEN); Platelet Estimate ADEQ; Platelets, Giant NOTED
[2018-08-25] MEDS ORDERED: PIPER/TAZO/NS 3.375gm 3.375 GM/100 ML BAG ONE (23:20)
--- NOTE | 2018-08-26 02:10 | EDPHYS ---
Physician Documentation [facility] Name: Syeda Light Age: 83 yrs Sex: Female : 1935 Arrival Date: 08/25/2018 Time: 18:45 Bed 7 Private MD: Gonzalo Andrade E ED Physician Aneudy Rudd HPI: 08/26 01:10 This 83 yrs old Female presents to ER via Wheelchair with complaints of tw4 Nausea, Shortness Of Breath. 01:10 The patient presents to the emergency department with nausea, vomiting, that is tw4 intermittent, 2 times today. Onset: The symptoms/episode began/occurred 2 week(s) ago. Historical: - Allergies: 08/25 19:28 No Known Allergies; aa1 - Home Meds: 19:28 isosorbide mononitrate 30 mg Oral Tb24 1 tab once daily [Active]; Klor-Con M20 20 mEq aa1 Oral TbTQ 1 tab once daily [Active]; Lasix 40 mg Oral tab 1 tab once daily [Active]; levothyroxine 75 mcg tab [Active]; Xarelto 20 mg oral tab 1 tab once daily [Active]; digoxin 125 mcg Oral tab 1 tab once daily [Active]; - PMHx: 19:28 Atrial Fib; BREAST CA; CHF; Hypertension; Hypothyroidism; aa1 - PSHx: 19:28 left mastectomy; aa1 - Immunization history:: Pneumococcal vaccine is up to date, Flu vaccine is up to date. - Social history:: Smoking status: Patient/guardian denies using tobacco. - Ebola Screening: : Patient denies exposure to infectious person Patient denies travel to an Ebola-affected area in the 21 days before illness onset. ROS: 08/26 01:18 Constitutional: Negative for fever, chills, and weight loss, Eyes: Negative for injury, tw4 pain, redness, and discharge, Cardiovascular: Negative for chest pain, palpitations, and edema, Back: Negative for injury and pain, MS/Extremity: Negative for injury and deformity, Skin: Negative for injury, rash, and discoloration, Neuro: Negative for headache, weakness, numbness, tingling, and seizure. Respiratory: Positive for shortness of breath, Negative for cough, dyspnea on exertion, hemoptysis, orthopnea, pleurisy. Abdomen/GI: Positive for nausea, vomiting, and diarrhea, nausea, vomiting, Negative for abdominal pain, nausea and vomiting, abdominal cramps, abdominal distension, anorexia, dysphagia, black/tarry stool, rectal pain. Exam: 01:18 Constitutional: This is a well developed, well nourished patient who is awake, alert, tw4 and in no acute distress. Head/Face: Normocephalic, atraumatic. Chest/axilla: Normal chest wall appearance and motion. Nontender with no deformity. No lesions are appreciated. Cardiovascular: Regular rate and rhythm with a normal S1 and S2. No gallops, murmurs, or rubs. Normal PMI, no JVD. No pulse deficits. Respiratory: Lungs have equal breath sounds bilaterally, clear to auscultation and percussion. No rales, rhonchi or wheezes noted. No increased work of breathing, no retractions or nasal flaring. Abdomen/GI: Soft, non-tender, with normal bowel sounds. No distension or tympany. No guarding or rebound. No evidence of tenderness throughout. Back: No spinal tenderness. No costovertebral tenderness. Full range of motion. MS/ Extremity: Pulses equal, no cyanosis. Neurovascular intact. Full, normal range of motion. Neuro: Awake and alert, GCS 15, oriented to person, place, time, and situation. Cranial nerves II-XII grossly intact. Motor strength 5/5 in all extremities. Sensory grossly intact. Cerebellar exam normal. Normal gait. Vital Signs: 08/25 19:28 BP 124 / 88; Pulse 89; Resp 20; Temp 97.5; Pulse Ox 97% on R/A; Weight 52.16 kg; Height aa1 5 ft. 6 in. (167.64 cm); Pain 3/10; 20:28 BP 113 / 63; Pulse 102; Resp 18; Pulse Ox 93% on R/A; Pain 0/10; ca1 21:30 BP 104 / 85; Pulse 83; Resp 18; Pulse Ox 97% on R/A; ca1 22:24 BP 108 / 71; Pulse 73; Resp 19; Pulse Ox 94% on R/A; ca1 23:34 BP 115 / 73; Pulse 80; Resp 18; Pulse Ox 95% on R/A; ca1 08/26 01:42 BP 110 / 73; Pulse 70; Resp 20; Pulse Ox 98% on R/A; ca1 02:36 BP 118 / 84; Pulse 73; Resp 19; Pulse Ox 99% on R/A; ca1 03:22 BP 116 / 64; Pulse 74; Resp 20; Pulse Ox 94% on R/A; ca1 04:20 BP 112 / 65; Pulse 69; Resp 18; Pulse Ox 95% on R/A; ca1 05:20 BP 108 / 61; Pulse 72; Resp 18; Pulse Ox 94% on R/A; ca1 / 19:28 Body Mass Index 18.56 (52.16 kg, 167.64 cm) aa1 MDM: 08/25 19:19 Patient medically screened. 08/26 06:38 Differential diagnosis: Nonspecific abd pain, gastritis, cholecystitis. Data reviewed: vital signs, nurses notes. Data interpreted: Pulse oximetry:. Counseling: I had a detailed discussion with the patient and/or guardian regarding: the historical points, exam findings, and any diagnostic results supporting the discharge/admit diagnosis, lab results, radiology results. 08/25 19:22 Order name: Blood Culture Adult (2) rust 08/25 19:22 Order name: BMP; Complete Time: 22:59 rust 08/25 23:00 Interpretation: Normal except: NA 130; CL 95; GLUC 107; BUN 25; GFR 46. 08/25 19:22 Order name: CBC with Diff; Complete Time: 22:57 rust 08/25 22:57 Interpretation: Normal except: RBC 5.30; HCT 45.4; RDW 16.4. 08/25 19:22 Order name: Ckmb; Complete Time: 23:00 rust 08/25 23:00 Interpretation: Within normal limits: CKMB 2.6. 08/25 19:22 Order name: CPK; Complete Time: 23:00 rust 08/25 23:00 Interpretation: Within normal limits: CPK 67. rust 08/25 19:22 Order name: D-Dimer; Complete Time: 22:55 rust 08/25 22:55 Interpretation: Normal except: D-DIMER 671. 08/25 19:22 Order name: Hepatic Function; Complete Time: 22:55 rust 08/25 22:56 Interpretation: AST 170; ALK 511; BILIT 4.7; BILID 2.1; TP 8.7; GLOB 5.0; A/G 0.7. 08/25 19:22 Order name: Lipase; Complete Time: 23:00 08/25 23:00 Interpretation: Within normal limits: LIP 170. 08/25 19:22 Order name: Magnesium; Complete Time: 23:00 08/25 23:00 Interpretation: Within normal limits: MG 2.4. 08/25 19:22 Order name: NT PRO-BNP; Complete Time: 22:57 4 08/25 22:57 Interpretation: Normal except: NT PRO-BNP 3652. 08/25 19:22 Order name: PT-INR; Complete Time: 22:57 08/25 22:58 Interpretation: Normal except: PT 23.3. 08/25 19:22 Order name: Ptt, Activated; Complete Time: 23:00 08/25 23:00 Interpretation: Normal except: PTT 30.3. 08/25 19:22 Order name: Troponin (emerg Dept Use Only); Complete Time: 01:59 4 08/26 03:35 Interpretation: TROPED 0.02. 08/25 20:48 Order name: Manual Differential; Complete Time: 22:58 EDMS 08/25 22:58 Interpretation: Normal except: BANDS [F] 2; LYM 1; MONO 20. 08/25 19:22 Order name: Call for Old Records; Complete Time: 19:48 4 08/25 19:22 Order name: Call for Old EKG; Complete Time: 19:48 08/25 19:22 Order name: XRAY CXR (1 view); Complete Time: 22:58 4 08/25 19:22 Order name: EKG; Complete Time: 19:23 08/25 19:22 Order name: Cardiac monitoring; Complete Time: 19:46 08/25 19:22 Order name: EKG - Nurse/Tech; Complete Time: 19:47 08/25 19:22 Order name: IV Saline Lock; Complete Time: 19:47 08/25 19:22 Order name: Labs collected and sent; Complete Time: 19:47 08/25 19:22 Order name: O2 Per Protocol; Complete Time: 19:47 08/25 21:15 Order name: CT Chest For PE Angio tw4 08/25 22:57 Order name: US Abdomen Complete tw4 08/25 23:08 Order name: Lactate; Complete Time: 00:13 tw4 08/26 01:27 Order name: Abdomen EDVA 08/25 19:22 Order name: O2 Sat Monitoring; Complete Time: 19:46 tw4 EC:46 Rate is 87 beats/min. Rhythm is irregularly irregular, A fib. QRS [place] is Normal. [place] tw4 interval is normal. QRS interval is normal. QT interval is normal. No Q waves. T waves are Flattened in leads V3, V5, V6. No ST changes noted. Clinical impression: Atrial Fibrillation. Interpreted by me. Reviewed by me. Administered Medications: 08/25 23:15 Drug: Zosyn 3.375 grams Route: IVPB; Infused Over: 60 mins; Site: right upper arm; ca1 08/26 03:30 Follow up: Response: No adverse reaction; IV Status: Completed infusion ca1 Disposition: 08/26/18 03:58 Transfer ordered to [facility]. Diagnosis is Biliary obstruction. - Reason for transfer: Higher level of care. - Accepting physician is Dr Mickey Armendariz. - Condition is Stable. - Problem is new. - Symptoms are unchanged. Signatures: Dispatcher [employer] [facility] Preethi Jarvis, RN RN aa1 nAeudy Rudd MD MD tw4 Estefany Alba RN RN ca1 Corrections: (The following items were deleted from the chart) 08/25 21:19 21:16 Chest For PE Angio+CT.RAD.BRZ ordered. [facility] 08/26 01:27 00:14 Abdomen Pelvis W Con+CT.RAD.BRZ ordered. [facility] 03:54 02:10 Hospitalization Ordered by Gonzalo Andrade MD for Observation. Preliminary tw4 diagnosis is Cyclical vomiting, intractable. Bed requested for Telemetry/MedSurg (observation). Status is Observation. Condition is Stable. Problem is new. Symptoms are unchanged. UTI on Admission? No. tw4 05:29 03:58 08/26/2018 03:58 Transfer ordered to [facility]. Diagnosis is ca1 Biliary obstruction. Reason for transfer: Higher level of care. Accepting physician is Dr Arevalo Dr Armendariz. Condition is Stable. Problem is new. Symptoms are unchanged. tw4
--- NOTE | 2018-08-26 02:10 | ER ---
Nurse's Notes [facility] Name: Syeda Light Age: 83 yrs Sex: Female : 1935 Arrival Date: 08/25/2018 Time: 18:45 Bed 7 Private MD: Gonzalo Andrade E Diagnosis: Biliary obstruction Presentation: 08/25 19:22 Presenting complaint: Patient states: N/V \T\ SOB since before [place]. Pt does not aa1 appear to be short of breath at rest but reports it is worse with activity. Denies CP or palpitations. Transition of care: patient was not received from another setting of care. Onset of symptoms was August 15, 2018. Risk Assessment: Do you want to hurt yourself or someone else? Patient reports no desire to harm self or others. Initial Sepsis Screen: Does the patient meet any 2 criteria? No. Patient's initial sepsis screen is negative. Does the patient have a suspected source of infection? No. Patient's initial sepsis screen is negative. Care prior to arrival: None. 19:22 Method Of Arrival: Wheelchair aa1 19:22 Acuity: MARY 3 aa1 Triage Assessment: 19:28 General: Appears in no apparent distress. comfortable, Behavior is calm, cooperative, aa1 appropriate for age. Historical: - Allergies: 19:28 No Known Allergies; aa1 - Home Meds: 19:28 isosorbide mononitrate 30 mg Oral Tb24 1 tab once daily [Active]; Klor-Con M20 20 mEq aa1 Oral TbTQ 1 tab once daily [Active]; Lasix 40 mg Oral tab 1 tab once daily [Active]; levothyroxine 75 mcg tab [Active]; Xarelto 20 mg oral tab 1 tab once daily [Active]; digoxin 125 mcg Oral tab 1 tab once daily [Active]; - PMHx: 19:28 Atrial Fib; BREAST CA; CHF; Hypertension; Hypothyroidism; aa1 - PSHx: 19:28 left mastectomy; aa1 - Immunization history:: Pneumococcal vaccine is up to date, Flu vaccine is up to date. - Social history:: Smoking status: Patient/guardian denies using tobacco. - Ebola Screening: : Patient denies exposure to infectious person Patient denies travel to an Ebola-affected area in the 21 days before illness onset. Screenin:30 Abuse screen: Denies threats or abuse. Denies injuries from another. Nutritional ca1 screening: No deficits noted. Tuberculosis screening: No symptoms or risk factors identified. Fall Risk Ambulatory Aid- Crutches/Cane/Walker (15 pts). Assessment: 19:30 General: Appears in no apparent distress. comfortable, Behavior is calm, cooperative, ca1 appropriate for age. Pain: Complains of pain in back Pain currently is 5 out of 10 on a pain scale. Neuro: Level of Consciousness is awake, alert, obeys commands, Oriented to person, place, time, situation, Speech is normal, Facial symmetry appears normal. Cardiovascular: Heart tones S1 S2 present Capillary refill < 3 seconds Patient's skin is warm and dry. Respiratory: Airway is patent Trachea midline Respiratory effort is even, unlabored, Respiratory pattern is regular, symmetrical, Breath sounds are clear bilaterally. GI: Abdomen is flat, non-distended, Bowel sounds present X 4 quads. Abd is soft and non tender X 4 quads. Reports nausea, vomiting, since 2017. : No signs and/or symptoms were reported regarding the genitourinary system. EENT: No signs and/or symptoms were reported regarding the EENT system. Derm: Skin is intact, Skin is pink, warm \T\ dry. Musculoskeletal: Circulation, motion, and sensation intact. Capillary refill < 3 seconds, Range of motion: intact in all extremities. 20:33 Reassessment: Patient appears in no apparent distress at this time. Patient is alert, ca1 oriented x 3, equal unlabored respirations, skin warm/dry/pink. Patient is alert/active/playful, equal unlabored respirations, skin warm/dry/pink. Lab called for blood specimen recollect. 21:16 Reassessment: Patient appears in no apparent distress at this time. Patient is alert, ca1 oriented x 3, equal unlabored respirations, skin warm/dry/pink. 22:18 Reassessment: Patient appears in no apparent distress at this time. Patient and/or ca1 family updated on plan of care and expected duration. Pain level reassessed. Patient is alert, oriented x 3, equal unlabored respirations, skin warm/dry/pink. Back from CT, not performed due to IV not flushing well. Informed charge nurse and requested Ultrasound guided IV. 23:22 Reassessment: Called CT scan that patient is ready with IV. ca1 08/26 00:26 Reassessment: Patient appears in no apparent distress at this time. Patient and/or ca1 family updated on plan of care and expected duration. Pain level reassessed. Patient is alert, oriented x 3, equal unlabored respirations, skin warm/dry/pink. Ultrasound at bedside. 01:50 Reassessment: Patient appears in no apparent distress at this time. Patient and/or ca1 family updated on plan of care and expected duration. Pain level reassessed. Patient is alert, oriented x 3, equal unlabored respirations, skin warm/dry/pink. Awaiting results for scan. Family at bedside. 02:36 Reassessment: Patient appears in no apparent distress at this time. Patient and/or ca1 family updated on plan of care and expected duration. Pain level reassessed. Patient is alert, oriented x 3, equal unlabored respirations, skin warm/dry/pink. Patient is transferred instead of admitted after assessment by Dr. Waterman. Patient and family informed. 03:22 Reassessment: Patient appears in no apparent distress at this time. Patient is alert, ca1 oriented x 3, equal unlabored respirations, skin warm/dry/pink. Awaiting transfer details of room assignment and contact number for report. 03:27 Reassessment: racing secretary states that we are waiting for a call back from [address] for a Med/Surg room assignment. Patient notified. 04:20 Reassessment: Called in report to [facility]. Report given to Quyen Minaya RN. Notified patient, awaiting EMS. 05:20 Reassessment: Patient appears in no apparent distress at this time. Patient and/or ca1 family updated on plan of care and expected duration. Pain level reassessed. Patient is alert, oriented x 3, equal unlabored respirations, skin warm/dry/pink. Vital Signs: 08/25 19:28 BP 124 / 88; Pulse 89; Resp 20; Temp 97.5; Pulse Ox 97% on R/A; Weight 52.16 kg; Height aa1 5 ft. 6 in. (167.64 cm); Pain 3/10; 20:28 BP 113 / 63; Pulse 102; Resp 18; Pulse Ox 93% on R/A; Pain 0/10; ca1 21:30 BP 104 / 85; Pulse 83; Resp 18; Pulse Ox 97% on R/A; ca1 22:24 BP 108 / 71; Pulse 73; Resp 19; Pulse Ox 94% on R/A; ca1 23:34 BP 115 / 73; Pulse 80; Resp 18; Pulse Ox 95% on R/A; ca1 01 01:42 BP 110 / 73; Pulse 70; Resp 20; Pulse Ox 98% on R/A; ca1 02:36 BP 118 / 84; Pulse 73; Resp 19; Pulse Ox 99% on R/A; ca1 03:22 BP 116 / 64; Pulse 74; Resp 20; Pulse Ox 94% on R/A; ca1 04:20 BP 112 / 65; Pulse 69; Resp 18; Pulse Ox 95% on R/A; ca1 05:20 BP 108 / 61; Pulse 72; Resp 18; Pulse Ox 94% on R/A; ca1 08/25 19:28 Body Mass Index 18.56 (52.16 kg, 167.64 cm) aa1 ED Course: 08/25 18:45 Patient arrived in ED. sb2 18:45 Gonzalo Andrade MD is Private Physician. sb2 19:19 Aneudy Rudd MD is Attending Physician. tw4 19:25 Triage completed. aa1 19:28 Arm band placed on right wrist. aa1 19:30 Patient has correct armband on for positive identification. Placed in gown. Bed in low ca1 position. Call light in reach. Side rails up X 1. Pulse ox on. NIBP on. Warm blanket given. 19:41 XRAY CXR (1 view) In Process Unspecified. EDMS 19:46 Estefany Alba, GUILLERMO is Primary Nurse. ca1 19:55 Inserted saline lock: 22 gauge in right antecubital area, using aseptic technique. oe Blood collected. 20:36 Lab(s) recollected, sent to lab. ca1 21:12 Notified ED physician of a critical lab result(s). Critical Value D-Dimer 671. ca1 21:[address] vm2 21:44 Radiology exam delayed due to IV insertion attempt and/or patient not having vm2 appropriate IV at this time. 21:44 Patient moved back from CT. vm2 22:50 Note: Nurse to call when patient has an IV. Radiology exam delayed due to IV insertion vm2 attempt and/or patient not having appropriate IV at this time. 23:15 Inserted 18 gauge 8 cm midline to right upper basilic vein on first attempt. Line with fc good blood return and flushes well. 08/26 00:17 CT Chest For PE Angio In Process Unspecified. EDMS 00:36 US Abdomen Complete In Process Unspecified. EDMS 01:21 CT completed. Patient tolerated procedure well. Patient moved to CT via stretcher. Patient moved back from CT. 01:21 CT completed. Patient tolerated procedure well. Patient moved to CT via stretcher. Patient moved back from CT. 01:28 Abdomen In Process Unspecified. EDMS 02:08 Gonzalo Andrade MD is Hospitalizing Provider. tw4 04:45 No provider procedures requiring assistance completed. Patient transferred, IV remains ca1 in place. Administered Medications: 08/25 23:15 Drug: Zosyn 3.375 grams Route: IVPB; Infused Over: 60 mins; Site: right upper arm; ca1 08/26 03:30 Follow up: Response: No adverse reaction; IV Status: Completed infusion ca1 Outcome: 02:10 Decision to Hospitalize by Provider. tw4 03:58 ER care complete, transfer ordered by . tw4 04:45 Transferred by ground EMS to [facility], Transfer form completed. ca1 X-rays sent w/ patient. 04:45 Condition: stable 04:45 Instructed on the need for transfer, Demonstrated understanding of instructions. 05:29 Patient left the ED. ca1 Signatures: Dispatcher [employer] [facility] Preethi Jarvis RN RN aa1 Gee Maynard Ayleen Flaherty RN RN Dm Blair Victoria 2 Aneudy Rudd MD MD tw4 Elvie Lui sb2 Estefany Alba RN RN ca1 Corrections: (The following items were deleted from the chart) 08/25 20:30 20:28 Abuse screen: Denies threats or abuse. Denies injuries from another. ca1 ca1 20:30 20:28 Nutritional screening: No deficits noted. ca1 ca1 20:30 20:28 Tuberculosis screening: No symptoms or risk factors identified. ca1 ca1 20:30 20:28 Fall Risk Ambulatory Aid- Crutches/Cane/Walker (15 pts). ca1 ca1 20:31 17:30 Abuse screen: Denies threats or abuse. Denies injuries from another. ca1 ca1 20: 17:30 Nutritional screening: No deficits noted. ca1 ca1 : 17:30 Tuberculosis screening: No symptoms or risk factors identified. ca1 ca1 20: 17:30 Fall Risk Ambulatory Aid- Crutches/Cane/Walker (15 pts). ca1 ca1 : 17:30 Patient has correct armband on for positive identification. Placed in gown. Bed ca1 in low position. Call light in reach. Side rails up X 1. ca1 : 17:30 Pulse ox on. NIBP on. ca1 ca1 : 17:30 Warm blanket given. ca1 ca1 20:35 17:30 General: Appears in no apparent distress. comfortable, Behavior is calm, ca1 cooperative, appropriate for age, ca1 : 17:30 Pain: Denies pain. ca1 ca1 20:35 17:30 Neuro: Level of Consciousness is awake, alert, obeys commands, Oriented to ca1 person, place, time, situation, Speech is normal, Facial symmetry appears normal, ca1 20:35 17:30 Cardiovascular: Heart tones S1 S2 present Capillary refill < 3 seconds Patient's ca1 skin is warm and dry. ca1 20:35 17:30 Respiratory: Airway is patent Trachea midline Respiratory effort is even, ca1 unlabored, Respiratory pattern is regular, symmetrical, Breath sounds are clear bilaterally. ca1 20:35 17:30 GI: Abdomen is flat, non-distended, Bowel sounds present X 4 quads. Abd is soft ca1 and non tender X 4 quads. Reports nausea, vomiting, since 2017. ca1 :35 17:30 : No signs and/or symptoms were reported regarding the genitourinary system. ca1ca1 20:35 17:30 EENT: No signs and/or symptoms were reported regarding the EENT system. ca1 ca1 20:35 17:30 Derm: Skin is intact, Skin is pink, warm \T\ dry. ca1 ca1 20:35 17:30 Musculoskeletal: Circulation, motion, and sensation intact. Capillary refill < 3 ca1 seconds, Range of motion: intact in all extremities, ca1 22:19 21:16 Reassessment: Patient appears in no apparent distress at this time. Patient is ca1 alert, oriented x 3, equal unlabored respirations, skin warm/dry/pink. Patient is alert/active/playful, equal unlabored respirations, skin warm/dry/pink. ca1 22:51 22:18 Reassessment: Patient appears in no apparent distress at this time. Patient ca1 and/or family updated on plan of care and expected duration. Pain level reassessed. Patient is alert, oriented x 3, equal unlabored respirations, skin warm/dry/pink. Awaiting results for CT scan and Angio. ca1 22:52 22:49 Reassessment: Patient appears in no apparent distress at this time. Patient ca1 and/or family updated on plan of care and expected duration. Pain level reassessed. Patient is alert, oriented x 3, equal unlabored respirations, skin warm/dry/pink. ca1
[2018-08-26 05:35] VITALS: TEMP 97.5
[2018-08-26 05:46] VITALS: BP 108/61; O2SAT 94
--- NOTE | 2018-08-26 07:37 | EKG ---
Test Date: 2018-08-25 Test Time: 19:28:40 Hazmat Cdl A Driver: TRACI MEASUREMENT RESULTS: Intervals: Rate: 87 MS: QRSD: 76 QT: 288 QTc: 346 Malin: P: MS: QRS: 64 T: 256 INTERPRETIVE STATEMENTS: Atrial fibrillation ST & T wave abnormality, consider inferior ischemia ST & T wave abnormality, consider anterolateral ischemia Abnormal ECG Compared to ECG 01/30/2018 11:23:54 ST (T wave) deviation is more pronounced Electronically Signed On 08-26-18 07:36:34 [employer] by Braulio Segundo
--- NOTE | 2018-08-26 08:21 | RAD REPORT ---
EXAM DESCRIPTION: CT - Chest For Pe Angio - 08/26/2018 6:00 am CLINICAL HISTORY: Shortness of breath, history of breast cancer, CHF, hypertension and atrial fibri llation; patient is status post left mastectomy. A preliminary report was provided at the time of the study and reviewed prior to final report. COMPARISON: Portable chest August 25, CT chest July 2017 TECHNIQUE: Dynamically enhanced 3 mm thick images of the chest were obtained during administration o f approximately 150mL Isovue 370 IV contrast. Coronal and oblique MIP reconstruction images were gene rated and reviewed. Exam utilizes a protocol to evaluate the pulmonary arterial tree. All CT scans are performed using dose optimization technique as appropriate and may include automated exposure control or mA/KV adjustment according to patient size. FINDINGS: No pulmonary emboli are identified. The aorta as imaged shows no acute or suspicious finding. No pericardial thickening or effusion. No suspicious infiltrate of the lung parenchyma. Scarring changes are present along with prominent ce ntrilobular emphysema. No pleural effusion or pleural thickening. No mediastinal or hilar suspicious masses. No chest wall masses or abnormal axillary lymphadenopathy. Bony degenerative changes are present. Lower thoracic compression fracture-probably T8- unchanged nora k to 2017 imaging. Limited upper abdomen imaging shows nodular contour to the liver parenchyma. There is heterogeneous a ttenuation. There are questionable low-density masses of the anterior right lobe. This examination is not adequate for assessment. Dedicated CT imaging would be suggested. IMPRESSION: No pulmonary emboli identified. Abnormal appearance to a partially imaged liver. Liver masses may be present an a dedicated CT imagin g study of the abdomen would be recommended. Emphysema changes of the lung parenchyma with no acute mass or infiltrate.
--- NOTE | 2018-08-26 08:43 | RAD REPORT ---
EXAM DESCRIPTION: US - Abdomen Exam Complete - 08/26/2018 12:37 am CLINICAL HISTORY: Abdominal pain, vomiting, abnormal CT study with liver lesions seen. Preliminary findings provided at the time of the study. COMPARISON: CT chest study August 25 FINDINGS: Gallbladder is absent. No mass or abnormal fluid collection in the gallbladder fossa. Comm on hepatic duct is 9 mm with no common duct stone identified. Extrahepatic biliary tree dilatation is not unexpected for unusual in a post cholecystectomy patient. The common bile duct and distal aspect of the extrahepatic biliary tree mostly obscured. Spleen is 8 cm with no focal splenic abnormality identified. The pancreas is too obscured for full as sessment. Liver is 13- 14 cm in maximum dimension. Capsule has a nodular contour. There is heterogeneity of the entire hepatic parenchyma. A small cyst is seen posterior subcapsular left lobe as an incidental fin ding. A 2.5 centimeter round low-density mass is present anterior right lobe. This matches the CT fin ding. There is slight posterior acoustic enhancement present. A second small 14 mm round low-density mass is present more inferiorly in the right lobe. No hydronephrosis or suspicious mass in either kidney. Aorta is normal is size. No ascites or bulky lymphadenopathy. No IVC abnormality. IMPRESSION: Abnormal parenchyma of a normal size liver. There are at least 2 right lobe liver lesion s 2.5 and 1.4 cm in size with overall heterogeneity of the liver parenchyma. Liver lesions are nonspecific. Patient may have a cirrhosis or diffuse hepatic parenchymal process as a baseline. Neoplastic etiology is certainly possible. Cholecystectomy change. The mild biliary tree dilatation is not outside of normal range. Distal extra hepatic biliary tree is poorly visualized.
--- NOTE | 2018-08-26 08:58 | RAD REPORT ---
EXAM DESCRIPTION: CT - Abdomen Pelvis Wo Contrast - 08/26/2018 6:00 am CLINICAL HISTORY: Abdominal pain, vomiting, shortness of breath, abnormal CT and ultrasound studies A preliminary report was provided at the time of the study and reviewed prior to final report. COMPARISON: None. TECHNIQUE: Axial [address] imaging of the abdomen and pelvis was performed without IV contrast. No IV contrast was given because of allergy, abnormal renal function, patient refusal or physician re quest. No oral contrast administered. All CT scans are performed using dose optimization technique as appropriate and may include automated exposure control or mA/KV adjustment according to patient size. FINDINGS: Lung base findings are detailed on the separate CT chest report. No pericardial effusion. Moderately large hiatal hernia is present. Liver is grossly abnormal. There is a geographic area of diminished attenuation throughout the left l obe and anterior aspect of the right lobe. A 2.6 centimeter round low-density mass is present in the right lobe segment 8 (image 15/84) this is homogeneous low-density with no calcification or fat compo nent. In the central right lobe segment 5 (image 22/84) there is a 14 millimeter round low-density ma ss. Poorly demarcated areas diminished attenuation present in the anterior and posterior aspects of t he inferior right lobe. Additional areas of heterogeneous, diminished attenuation are seen in the lat eral superior right lobe. Liver has a nodular capsular contour. The examination was performed as a noncontrast study. There is remnant contrast in the circulatory sy stem from the earlier CT chest PE study. This limits full assessment of the liver. Cholecystectomy clips are present. There is intrahepatic and extrahepatic biliary tree dilatation. Th e multiple duct stones are identified including a 7 millimeter stone in the head of the pancreas. Miguel Angel iary tree dilatation can occur after a cholecystectomy. The current biliary tree dilatation up to 9 m m in diameter could be normal reservoir affect or dilatation related to the choledocholithiasis. Spleen and pancreas show no acute parenchymal findings. No hydronephrosis or suspicious renal mass. Right adrenal gland is normal. Slight fullness to the le ft adrenal gland not likely significant. No pyelonephritis findings. Well filled urinary bladder show s contrast layering in the dependent portion of the bladder. No mass, wall thickening or bladder calc ulus. No gastric dilatation or wall thickening. Hiatal hernia is present. No dilated small bowel or acute s mall bowel finding. Prominent stool volume distends the rectum and fills the the sigmoid colon. Promi nent sigmoid diverticulosis present. Moderate stool volume elsewhere in the colon with and a mild to moderate sutton diverticulosis pattern. No appendicitis or acute colon process seen. No free air, free f luid or inflammatory stranding. No mass or bulky lymphadenopathy. No ascites or omental thickening. Prominent disc and bony degenerative changes are present. No pathologic bone process. IMPRESSION: Grossly abnormal liver. There is capsular nodularity suspicious for cirrhosis or diffuse hepatic parenchymal disease as well is geographic hypodensity involving the left lobe and anterior r ight lobe. Several low-density lesions are present in the liver in addition to the capsule and contour abnormali ties. Regenerating nodules are possible. Metastatic or primary neoplastic process is certainly possib le as well. Multi stone choledocholithiasis in a post cholecystectomy patient. Biliary tree is dilated to 9 mm wh ich could be post cholecystectomy reservoir effect or an obstructive dilatation. This can be correlat ed with clinical presentation and lab findings. Large stool volume in the colon with prominent diverticulosis. No diverticulitis or acute GI process. Examination was performed as a noncontrast study shortly after a CT chest PE study. This is not an op timal protocol for a thorough assessment of the liver. Contrast MR liver imaging may be helpful for f urther assessment.
== END 2018-08-26 05:29 | disposition short-term general hospital (02) ==
LOC: ER 18:43
DX: K83.1 Obstruction of bile duct (principal); I10 Essential (primary) hypertension; E03.9 Hypothyroidism, unspecified; I48.91 Unspecified atrial fibrillation; Z85.3 Personal history of malignant neoplasm of breast; Z79.01 Long term (current) use of anticoagulants; Z90.12 Acquired absence of left breast and nipple
CPT/HCPCS: 36415; 71045; 71275; 74176; 76700; 80048; 80076; 82550; 82553; 83605; 83690; 83735; 83880; 84484; 85025; 85379; 85610; 85730; 87040 ×2; 93005; 96365; 96366; 99285; J2543; Q9967